=== PATIENT | male | born 1950 | race Caucasian/White ===

== ENCOUNTER 2018-10-10 11:17 | Inpatient (IN) | payer OTHER | END 2018-10-25 21:00 | LOC: EDH 11:17 → 2CH 10-20 13:40 → 3BH 10-22 22:04 → EDHIP 13:28 → 3BH 16:31 | PROC: B41F1ZZ Fluoroscopy of Right Lower Extremity Arteries using Low Osmolar Contrast (ICD-10-PCS; principal; 2018-10-20 11:15) | PROC: 0JBQ0ZZ Excision of Right Foot Subcutaneous Tissue and Fascia, Open Approach (ICD-10-PCS; 2018-10-20 11:15) | PROC: 041M09L Bypass Right Popliteal Artery to Popliteal Artery with Autologous Venous Tissue, Open Approach (ICD-10-PCS; 2018-10-20 11:15) | DX: M86.171 Other acute osteomyelitis, right ankle and foot (principal); E11.52 Type 2 diabetes mellitus with diabetic peripheral angiopathy with gangrene; I96 Gangrene, not elsewhere classified; L03.115 Cellulitis of right lower limb; N17.9 Acute kidney failure, unspecified; L02.611 Cutaneous abscess of right foot; E11.628 Type 2 diabetes mellitus with other skin complications; I48.0 Paroxysmal atrial fibrillation; E78.5 Hyperlipidemia, unspecified; N18.9 Chronic kidney disease, unspecified; E11.65 Type 2 diabetes mellitus with hyperglycemia; E11.22 Type 2 diabetes mellitus with diabetic chronic kidney disease; I12.9 Hypertensive chronic kidney disease with stage 1 through stage 4 chronic kidney disease, or unspecified chronic kidney disease; E66.9 Obesity, unspecified; L97.519 Non-pressure chronic ulcer of other part of right foot with unspecified severity; Z74.01 Bed confinement status; E11.621 Type 2 diabetes mellitus with foot ulcer ==

== ENCOUNTER 2018-11-05 16:53 | Inpatient (IN) | payer OTHER ==
[~2018-11-05] VITALS: Ht 172.7 cm; Wt 88.5 kg
[2018-11-05] VITALS (18 sets, daily range): BP systolic 104–131; BP diastolic 60–81
[~2018-11-05 16:53] MED LIST: ALBU90AE IH; ASPI-1197 PO; ATOR40TA71 PO; BUPR75TA8 PO; CHOL400T33 PO; DOXE25CA3 PO; FERS325 PO; GABA600T10 PO; INSLAN SQ; INSU100C6 SQ; LISI-613 PO; METF-445 PO; RIVA20TA PO; SOTA80TA PO; SYMB8060 IH; TIOT4MIS5 IH; VENL-63 PO; ZOLP10TA6 PO
[2018-11-05] MEDS ORDERED: PROPOFOL 10 MG/ML 20ML VIAL IV ONE (17:40)
--- NOTE | 2018-11-05 18:45 | NUR ---
PATIENT ARRIVED TO FLOOR AT 1840 ,TRANSPORTED BY GEORGETTE FROM .
[2018-11-05] MEDS ORDERED: BISACODYL 5 MG TABLET.DR PO ONE (20:20)
[2018-11-05] MEDS ORDERED: PEG 3350/NA SULF,BICARB,CL/KCL 4000 ML SOLN PO ONE (20:20)
[2018-11-05] MEDS ORDERED: LACTULOSE 20 GM/30 ML UDCUP PO ONE (20:20)
[2018-11-05] MEDS: PANTOPRAZOLE SODIUM 40 MG TABLET.DR PO SCH (21:12)
[2018-11-05] MEDS: METOCLOPRAMIDE 10 MG/2 ML VIAL IVP SCH (21:12)
[2018-11-05 21:47] LABS: HEMATOCRIT 23.1 % (42-54)
[2018-11-05] MEDS ORDERED: ACETAMINOPHEN 325 MG TAB PO PRN ×2 (22:15)
[2018-11-05] MEDS ORDERED: ONDANSETRON HCL 4 MG/2 ML VIAL IV PRN (22:15)
[2018-11-06] VITALS (26 sets, daily range): BP systolic 106–137; BP diastolic 53–85
[2018-11-06] MEDS ORDERED: METOCLOPRAMIDE 10 MG/2 ML VIAL ONE (03:25)
[2018-11-06] MEDS: METOCLOPRAMIDE 10 MG/2 ML VIAL IVP SCH (03:27)
[2018-11-06 05:42] LABS: MEAN CORPUSCULAR HEMOGLOBIN 27.9 pg (27.0-33.0); MEAN CORPUSCULAR VOLUME 82.2 fL (79-99); NUCLEATED RED BLOOD CELLS 0.2 % (0.0-0.19); PLATELET COUNT (AUTO) 124 K/uL (130-400); RED BLOOD CELL COUNT(AUTO) 2.45 MIL/uL (4.50-6.20); RED CELL DISTRIBUTION WIDTH 17.1 % (11.0-15.5); WHITE BLOOD COUNT (AUTO) 3.5 K/uL (4.8-10.8)
[2018-11-06 05:52] LABS: CREATININE 0.7 mg/dL (0.5-1.5); POTASSIUM 3.9 mmol/L (3.5-5.1)
[2018-11-06] MEDS ORDERED: ALBUTEROL SULFATE 0.083% 2.5 MG/3 ML INH IH PRN (06:00)
[2018-11-06 06:03] LABS: HEMATOCRIT 20.1 % (42-54)
[2018-11-06] MEDS ORDERED: SODIUM CHLORIDE 0.9% 250 ML IV ONE (06:16)
[2018-11-06] MEDS: METFORMIN HCL 850 MG TABLET PO SCH ×3 (06:19→16:13)
[2018-11-06] MEDS: INSULIN LISPRO 100 UNIT/ML 3ML SQ SCH ×3 (06:19→16:27)
[2018-11-06] MEDS: BUDESONIDE 0.5 MG/2 ML INH IH SCH ×2 (07:12→18:26)
[2018-11-06] MEDS: IPRATROPIUM 0.5 MG/2.5 ML INH IH SCH ×3 (07:13→23:23)
[2018-11-06] MEDS: ALBUTEROL SULFATE 0.083% 2.5 MG/3 ML INH IH SCH ×4 (07:13→23:23)
[2018-11-06] MEDS: SODIUM CHLORIDE 0.9% 1000ML 1,000 ML IV SCH ×2 (08:11→16:48)
--- NOTE | 2018-11-06 08:30 | NUR ---
1st unit of PRBC's initiated.
[2018-11-06] MEDS: ***HM***Cholecalciferol (Vitamin D3) 400 UNIT PO SCH (09:00)
[2018-11-06] MEDS ORDERED: FAMOTIDINE/PF 20 MG/2 ML VIAL IV SCH (09:00)
[2018-11-06] MEDS ORDERED: PROPOFOL 10 MG/ML 20ML VIAL IV ONE ×2 (09:44→09:48)
[2018-11-06] MEDS ORDERED: LIDOCAINE HCL-MPF 2% 5ML VIAL ONE (09:46)
[2018-11-06] MEDS: PANTOPRAZOLE SODIUM 40 MG TABLET.DR PO SCH (11:08)
[2018-11-06] MEDS: BUPROPION HCL 150 MG TABLET.SA PO SCH ×2 (11:09→20:07)
[2018-11-06] MEDS: GABAPENTIN 300 MG CAPSULE PO SCH ×3 (11:09→20:07)
[2018-11-06] MEDS: FERROUS SULFATE 325 MG TABLET.DR PO SCH (11:11)
[2018-11-06] MEDS: MORPHINE SULFATE 2 MG/ML 1ML SYG IV PRN ×2 (11:11→19:24)
[2018-11-06] MEDS: SOTALOL HCL 80 MG TABLET PO SCH ×2 (11:11→20:07)
[2018-11-06] MEDS: LISINOPRIL 20 MG TABLET PO SCH (11:12)
[2018-11-06] MEDS: PANTOPRAZOLE SODIUM 80 MG in SODIUM CHLORIDE 0.9% 100 ML IV SCH (11:23)
[2018-11-06] MEDS ORDERED: COMPOUND IV REFRIGERATED 1 EACH IVSOLN MISC PRN (11:30)
[2018-11-06] MEDS: INSULIN GLARGINE 100 UNITS/ML 10 ML VIAL SQ SCH (11:54)
[2018-11-06] MEDS ORDERED: VENLAFAXINE HCL XR 37.5 MG CAP PO SCH (12:00)
[2018-11-06] MEDS ORDERED: VENLAFAXINE HCL XR 150 MG CAP PO SCH (12:00)
--- NOTE | 2018-11-06 15:22 | NUR ---
2nd unit of PRBC's initiated.
--- NOTE | 2018-11-06 17:12 | NUR ---
DCP CM met with pt discussed dc plans. Pt is independent prior to admission, was admitted from [facility], prior to lives at home alone. Denies any equipments/services. Feels safe to go back home, arranges own needs, girlfriend assists with transportation as necessary. Pt agreeable for placement if necessary, would like to decide once more stable. DC plan to LT[facility] vs home. CM to cont to follow up. Addendum: 11/06/18 at 1715 by MARIA VICTORIA CHRISTINE LVN CM Amended: Links added.
[2018-11-06] MEDS: VENLAFAXINE HCL XR 37.5 MG CAP PO SCH (18:00)
[2018-11-06] MEDS: ATORVASTATIN CALCIUM 40 MG TABLET PO SCH (20:07)
[2018-11-06] MEDS: ZOLPIDEM TARTRATE 5 MG TAB PO SCH (20:07)
[2018-11-06] MEDS: DOXEPIN HCL 25 MG CAP PO SCH (20:07)
[2018-11-06 22:03] LABS: HEMATOCRIT 25.5 % (42-54)
[2018-11-07] VITALS (12 sets, daily range): BP systolic 101–146; BP diastolic 56–79
[2018-11-07] MEDS: SODIUM CHLORIDE 0.9% 1000ML 1,000 ML IV SCH ×3 (03:26→23:51)
[2018-11-07] MEDS: MORPHINE SULFATE 2 MG/ML 1ML SYG IV PRN ×2 (04:53→19:33)
[2018-11-07 04:54] LABS: BASOPHILS % (AUTO) 1.2 % (0.0-5.0); EOSINOPHILS % (AUTO) 6.2 % (0.0-8.0); HEMATOCRIT 25.4 % (42-54); LYMPHOCYTES % (AUTO) 26.8 % (21.0-51.0); MEAN CORPUSCULAR HGB CONC 33.8 g/dL (32.0-36.0); MEAN CORPUSCULAR VOLUME 82.6 fL (79-99); MONOCYTES % (AUTO) 7.1 % (3.0-13.0); NEUTROPHILS % (AUTO) 58.7 % (40.0-77.0); NUCLEATED RED BLOOD CELLS 0.1 % (0.0-0.19); PLATELET COUNT (AUTO) 144 K/uL (130-400); RED BLOOD CELL COUNT(AUTO) 3.08 MIL/uL (4.50-6.20); RED CELL DISTRIBUTION WIDTH 17.1 % (11.0-15.5); WHITE BLOOD COUNT (AUTO) 4.1 K/uL (4.8-10.8)
[2018-11-07 05:28] LABS: CREATININE 0.7 mg/dL (0.5-1.5); POTASSIUM 3.6 mmol/L (3.5-5.1)
[2018-11-07] MEDS: METFORMIN HCL 850 MG TABLET PO SCH ×3 (06:21→16:08)
[2018-11-07] MEDS: INSULIN LISPRO 100 UNIT/ML 3ML SQ SCH ×3 (06:22→17:00)
[2018-11-07] MEDS: BUDESONIDE 0.5 MG/2 ML INH IH SCH ×2 (06:37→18:03)
[2018-11-07] MEDS: ALBUTEROL SULFATE 0.083% 2.5 MG/3 ML INH IH SCH ×4 (06:37→23:01)
[2018-11-07] MEDS: IPRATROPIUM 0.5 MG/2.5 ML INH IH SCH ×4 (06:41→23:01)
[2018-11-07] MEDS: ***HM***Cholecalciferol (Vitamin D3) 400 UNIT PO SCH (09:00)
[2018-11-07] MEDS: LISINOPRIL 20 MG TABLET PO SCH (09:00)
[2018-11-07] MEDS: INSULIN GLARGINE 100 UNITS/ML 10 ML VIAL SQ SCH (09:00)
--- NOTE | 2018-11-07 11:00 | NUR ---
CM note: [facility] pending acceptance CM met with pt discussed MD recommendations for [facility] placement to cont with antibiotics treatments. Pt agreeable, TWYLA signed for [facility]. Faxed order and clinicals, confirmation received. Spoke to Sandhya will come eval pt. Pt pending acceptance. Primary nurse aware. CM to cont to follow up.
[2018-11-07] MEDS: GABAPENTIN 300 MG CAPSULE PO SCH ×3 (11:17→20:29)
[2018-11-07] MEDS: SOTALOL HCL 80 MG TABLET PO SCH ×2 (11:18→20:29)
[2018-11-07] MEDS: BUPROPION HCL 150 MG TABLET.SA PO SCH ×2 (11:18→20:30)
[2018-11-07] MEDS: FERROUS SULFATE 325 MG TABLET.DR PO SCH (11:18)
[2018-11-07] MEDS: VENLAFAXINE HCL XR 37.5 MG CAP PO SCH ×2 (12:00→16:07)
[2018-11-07] MEDS: PANTOPRAZOLE SODIUM 80 MG in SODIUM CHLORIDE 0.9% 100 ML IV SCH (12:29)
--- NOTE | 2018-11-07 14:00 | NUR ---
WILBERT GUPTA RN RETURNED CALL STATES THERE IS NO NEED TO FOLLOW UP WITH PATIENT AT THIS TIME, OKAY TO HOLD BLOOD THINNERS FOR NOW CALL FOR OTHER CONCERNS, FOLLOW UP IN 1-2 WEEKS. MAY LEAVE SUTURES IN PLACE FOR NOW.
[2018-11-07] MEDS ORDERED: PROPOFOL 10 MG/ML 20ML VIAL IV ONE ×2 (15:01→15:07)
[2018-11-07] MEDS: ZOSYN 3.375GM+NS 50ML 50 ML IV SCH ×2 (16:00→20:29)
--- NOTE | 2018-11-07 16:00 | NUR ---
CM Note: [facility] acceptance Spoke to Sandhya Fisher, pt has acceptance. MOT filled out, pending MD and house super to sign, EMS arranged and faxed for today, primary nurse to call [facility] once pt ready to DC. Primary nurse aware. CM to cont to follow up
[2018-11-07] MEDS: ATORVASTATIN CALCIUM 40 MG TABLET PO SCH (20:29)
[2018-11-07] MEDS: DOXEPIN HCL 25 MG CAP PO SCH (20:30)
[2018-11-07] MEDS: ZOLPIDEM TARTRATE 5 MG TAB PO SCH (20:30)
[2018-11-08 00:05] VITALS: BP 122/73
[2018-11-08] MEDS: MORPHINE SULFATE 2 MG/ML 1ML SYG IV PRN (01:44)
[2018-11-08 04:08] VITALS: BP 130/81
[2018-11-08] MEDS: ZOSYN 3.375GM+NS 50ML 50 ML IV SCH ×2 (05:12→15:17)
[2018-11-08 05:19] LABS: HEMATOCRIT 24.9 % (42-54); MEAN CORPUSCULAR HEMOGLOBIN 28.2 pg (27.0-33.0); MEAN CORPUSCULAR HGB CONC 33.8 g/dL (32.0-36.0); MEAN CORPUSCULAR VOLUME 83.4 fL (79-99); NUCLEATED RED BLOOD CELLS 0.2 % (0.0-0.19); PLATELET COUNT (AUTO) 117 K/uL (130-400); RED BLOOD CELL COUNT(AUTO) 2.98 MIL/uL (4.50-6.20); WHITE BLOOD COUNT (AUTO) 3.8 K/uL (4.8-10.8)
[2018-11-08 05:25] LABS: CREATININE 0.8 mg/dL (0.5-1.5); POTASSIUM 3.7 mmol/L (3.5-5.1)
[2018-11-08 05:41] LABS: BAND NEUTROPHILS % (MANUAL) 1 % (0-2); BASOPHILS % (MANUAL) 2 % (0-2); EOSINOPHILS % (MANUAL) 7 % (1-6); LYMPHOCYTES % (MANUAL) 18 % (22-44); MAN.DIFF COMMENT-IMPRESSION MANUAL DIFFERENTIAL; MONOCYTES % (MANUAL) 6 % (2-9); SEGMENTED NEUTROPHILS % 66 % (40-70)
[2018-11-08 05:43] LABS: PLATELET MORPHOLOGY COMMENT SLIGHTLY DECREASED
[2018-11-08] MEDS: METFORMIN HCL 850 MG TABLET PO SCH ×3 (06:04→17:06)
[2018-11-08] MEDS: INSULIN LISPRO 100 UNIT/ML 3ML SQ SCH ×3 (06:06→17:00)
[2018-11-08] MEDS: ALBUTEROL SULFATE 0.083% 2.5 MG/3 ML INH IH SCH ×3 (06:07→18:02)
[2018-11-08] MEDS: IPRATROPIUM 0.5 MG/2.5 ML INH IH SCH ×3 (06:07→18:02)
[2018-11-08] MEDS: BUDESONIDE 0.5 MG/2 ML INH IH SCH ×2 (06:24→18:02)
[2018-11-08 08:00] VITALS: BP 144/84
[2018-11-08] MEDS: LISINOPRIL 20 MG TABLET PO SCH (08:23)
[2018-11-08] MEDS: GABAPENTIN 300 MG CAPSULE PO SCH ×2 (08:24→15:17)
[2018-11-08] MEDS: BUPROPION HCL 150 MG TABLET.SA PO SCH (08:24)
[2018-11-08] MEDS: FERROUS SULFATE 325 MG TABLET.DR PO SCH (08:24)
[2018-11-08] MEDS: SOTALOL HCL 80 MG TABLET PO SCH (08:25)
[2018-11-08] MEDS: INSULIN GLARGINE 100 UNITS/ML 10 ML VIAL SQ SCH (08:27)
[2018-11-08] MEDS: MORPHINE SULFATE 4 MG/1ML SYG IV PRN ×2 (08:33→15:03)
[2018-11-08] MEDS: ***HM***Cholecalciferol (Vitamin D3) 400 UNIT PO SCH (09:00)
[2018-11-08 11:00] VITALS: BP 140/55
[2018-11-08] MEDS: VENLAFAXINE HCL XR 37.5 MG CAP PO SCH ×2 (12:07→17:06)
[2018-11-08] MEDS: PANTOPRAZOLE SODIUM 80 MG in SODIUM CHLORIDE 0.9% 100 ML IV SCH (15:17)
[2018-11-08 16:00] VITALS: BP 129/84
--- NOTE | 2018-11-08 18:51 | NUR ---
report was given to xavier from [facility].med rec faxed confirmed and original sent with ems ..
--- NOTE | 2018-11-08 19:31 | NUR ---
picc line dressing changed using sterile techinque..good blood return on both ports Addendum: 11/08/18 at 1932 by TAMMY PERRY RN RN Amended: Links added.
== END 2018-11-08 18:35 | DRG 391 ==
LOC: SUH 16:53 → 3AH 17:55 → OBSVTOIN 17:55
PROVIDERS: ADMIT Internal Medicine; ATTEND Internal Medicine
PROC: 0DJ08ZZ Inspection of Upper Intestinal Tract, Via Natural or Artificial Opening Endoscopic (ICD-10-PCS; 2018-11-05)
PROC: 0DJD8ZZ Inspection of Lower Intestinal Tract, Via Natural or Artificial Opening Endoscopic (ICD-10-PCS; 2018-11-06)
PROC: 0DJD8ZZ Inspection of Lower Intestinal Tract, Via Natural or Artificial Opening Endoscopic (ICD-10-PCS; principal; 2018-11-07)
PROC: 30233N1 Transfusion of Nonautologous Red Blood Cells into Peripheral Vein, Percutaneous Approach (ICD-10-PCS; 2018-11-08)
DX: K21.0 Gastro-esophageal reflux disease with esophagitis (principal); K29.01 Acute gastritis with bleeding; D62 Acute posthemorrhagic anemia; I50.32 Chronic diastolic (congestive) heart failure; I48.0 Paroxysmal atrial fibrillation; E11.51 Type 2 diabetes mellitus with diabetic peripheral angiopathy without gangrene; E78.2 Mixed hyperlipidemia; F17.200 Nicotine dependence, unspecified, uncomplicated; I11.0 Hypertensive heart disease with heart failure; I25.10 Atherosclerotic heart disease of native coronary artery without angina pectoris; K64.0 First degree hemorrhoids; Z79.01 Long term (current) use of anticoagulants; Z79.4 Long term (current) use of insulin; Z95.5 Presence of coronary angioplasty implant and graft; Z89.421 Acquired absence of other right toe(s); Z98.42 Cataract extraction status, left eye; Z98.41 Cataract extraction status, right eye
CPT/HCPCS: 36415; 36430; 43235; 45378; 80048; 82948; 85014; 85018; 85025; 85027; 86850; 86900; 86901; 86922; 94640; 94664; C9113; G0378; J2270; J2543; J2704; J2765; J3490; J7030; P9016